=== PATIENT | female | born 1955 | race Caucasian/White ===

== ENCOUNTER → 2019-09-20 | Outpatient (CLI) | payer MEDICARE ==
[~2019-09-20] MED LIST: BUSPAR30 MG; IBUPROFEN 800800 MG PO; LEXAPRO20 MG; MULTIVITAMINS1 EAC7 PO; ROBAXIN500 MG PO; VITAMIN D-32000 UNIT PO; WELLBUTRIN SR150 MG
== END ==
LOC: M.RAD 16:26
DX: R05 Cough (principal); M41.84 Other forms of scoliosis, thoracic region

== ENCOUNTER → 2020-03-13 | Outpatient (CLI) | payer MEDICARE | LOC: M.ULTRA 11:00 | PROVIDERS: ATTEND Registered Nurse Diabetes Educator | DX: K76.0 Fatty (change of) liver, not elsewhere classified (principal); N95.0 Postmenopausal bleeding; R10.9 Unspecified abdominal pain; Z79.899 Other long term (current) drug therapy ==